=== PATIENT | male | born 1990 | race Caucasian/White ===

== ENCOUNTER 2022-05-18 17:14 | Emergency (ER) | payer BC ==
[2022-05-18 18:03] LABS: HEMOGLOBIN 15.2 gm/dl (14.0-17.5); RED BLOOD COUNT 5.04 M/UL (4.20-5.50); WHITE BLOOD COUNT 9.7 K/UL (4.5-11.0)
[2022-05-18 18:27] LABS: BUN/CREATININE RATIO 11 (0-10)
[2022-05-18] MEDS ORDERED: ANTIVERT25 M1 PO (19:00)
== END 2022-05-18 20:35 | disposition home or self-care (01) ==
LOC: ER1 17:14
PROVIDERS: Family Medicine
DX: H81.399 Other peripheral vertigo, unspecified ear (principal)
CPT/HCPCS: 80053; 81001; 85025; 93005; 99284